=== PATIENT | male | born 1975 | race Caucasian/White ===

== ENCOUNTER 2024-01-07 13:53 | Inpatient (IN) | payer MEDICAID, SELFPAY ==
[2024-01-07 13:54] VITALS: BP 122/95; PULSE 87; RESP 16; TEMP 36.6; O2SAT 98; BMI 23.3
--- NOTE | 2024-01-07 14:03 | EDS_ITS ---
HPI History of Present Illness Chief Complaint: Substance Abuse Informant: patient Narrative Narrative: Patient presents requesting detox from fentanyl. He states his last use was 2 days ago. He typically shoots up. He has not had any recent infections. He also admits to methamphetamine use. He denies alcohol use. [facility] Medical History (Updated 01/07/24 @ 14:[address] Gladys De Leon MD) Substance abuse Bipolar disorder Home Medications ?Medication ?Instructions ?Recorded ?Last Taken ?Type No Known/Unobtainable [No Known 11/25/16 Unknown History Home Medications] Allergy/AdvReac Type Severity Reaction Status Date / Time No Known Allergies Allergy Verified 01/07/24 13:54 Social History Smoking Status: Current every day smoker ROS ROS ED Constitutional Constitutional ED: Denies chills or fever(s) Eyes Eyes: Denies discharge from eye(s) ENT ENT ED: Denies discharge from eye(s), rhinorrhea or sore throat Cardiovascular Cardiovascular: Denies chest pain Respiratory/Chest Respiratory/Chest: Denies cough or dyspnea Gastrointestinal Gastrointestinal: Denies abdominal pain, nausea or vomiting Musculoskeletal Musculoskeletal: Denies back pain or extremity pain Integumentary Denies Abrasions or rash Neurologic Neurologic: Denies headache(s) or weakness Psychiatric Psychiatric: Denies anxiety or depression Allergic/Immunologic Allergic/Immunologic ED: Denies lip swelling or urticaria EXAM Physical Exam Const Vital Signs: 01/07/24 13:54 Temperature 97.8 F Temperature Source Temporal Pulse Rate 87 Respiratory Rate 16 Blood Pressure 122/95 H Blood Pressure Mean 104 Pulse Ox 98 Oxygen Delivery Method Room Air Positive well nourished and well developed General Appearance ED: well developed HEENT Reports moist mucous membranes Eyes EOMs intact bilaterally Chest Wall inspection of chest normal and palpation of chest normal Resp normal respiratory effort and clear to auscultation bilaterally Cardio regular rate and regular rhythm GI soft to palpation Extremity Extremity Narrative: Mild tremor noted to the upper extremities. Neuro oriented x3 and no sensory deficits noted Sensorium / Orientation: alert Psych Mood & Affect: anxious MDM MDM MDM Narrative Medical decision making narrative: Rules of the detox program will be reviewed with the patient. If he agrees to the program, labs will be drawn for medical clearance. I will speak with the hospitalist. Discharge Plan Triage Chief Complaint: Substance Abuse ED Provider: Gladys De Leon Dx/Rx/DC Orders Clinical Impression: Opiate abuse, continuous, Desire for detoxification Prescriptions: No Action No Known Home Medications Primary Care Provider: Care Physician,No Primary Referrals: Care Physician,No Primary [Primary Care Provider] - Print Language: Mongolian Disposition Disposition: Acute Care Hospital [facility]
--- NOTE | 2024-01-07 14:35 | PCM.HP.STD ---
HPI - General General Date of Admission: 01/07/24 Date of Service: 01/07/24 Chief Complaint: Opiate abuse, withdrawal HPI Narrative The patient is a 48 y/o M w/ PMHx: Tobacco use, Hepatitis C, Polysubstance abuse (Fentanyl, Heroin, Crack cocaine, Methamphetamine), Anxiety and Depression/Bipolar disorder who presents to the [facility] ED on 01/07/24 with history of ongoing substance abuse recently primarily fentanyl which she typically uses IV with last usage 2 days prior to presentation in addition to methamphetamine w/ noted acute opiate withdrawal onset starting on day of presentation with dyspepsia, abdominal cramping, body aches, fatigue, restlessness as well as nausea with decreased appetite with minimal oral intake over the last 48 hours. Patient notes being interested in attaining clean status. He notes he is currently living with his mother but is tired of his lifestyle and wants to be clean. He notes that he uses at least a gram of fentanyl daily in addition to other items if he can obtain them. Workup in the ED included T97.8, heart rate 87, BP 122/95, respiratory rate 16, and 8% on room air, pending CBC, CMP, urine drug screen upon request evaluation of patient. [facility] Medical History Polysubstance abuse Tobacco use Heroin abuse Methamphetamine abuse Fentanyl use disorder, severe Crack cocaine use Hepatitis C Anxiety and depression Bipolar disorder Home Medications ?Medication ?Instructions ?Recorded ?Last Taken ?Type gabapentin 400 mg capsule 400 mg PO TID pain 01/07/24 Unknown History Allergy/AdvReac Type Severity Reaction Status Date / Time No Known Allergies Allergy Verified 01/07/24 13:54 Family History (Updated 01/07/24 @ 15:[address] Mónica Ny MD) Mother CVA (cerebral vascular accident) Hypertension Father CVA (cerebral vascular accident) Hypertension Surgical History S/P chest tube placement Social History (Updated 01/07/24 @ 15:[address] Mónica Ny MD) household members: family Smoking Status: Current every day smoker tobacco type: cigarettes Smoking packs per day: 0.5 Smoking cigarettes per day: 10.0 alcohol intake: never substance use type: crack/cocaine, heroin, amphetamines, IV drugs, methamphetamine and other details: Fentanyl. ROS ROS Narrative Admission Review of Systems: CONSTITUTIONAL: No weight loss, fever, chills, + weakness or fatigue. HEENT: + Congestion/rhinorrhea. Eyes: No visual loss, blurred vision, double vision or yellow sclerae. Ears, Nose, Throat: No hearing loss, sneezing, sore throat. SKIN: No rash or itching, lesions, wounds. CARDIOVASCULAR: No chest pain, chest pressure or chest discomfort, palpitations, edema, orthopnea, syncopal events. RESPIRATORY: No shortness of breath, cough or sputum, wheezing, hemoptysis. GASTROINTESTINAL: + Anorexia, nausea, vomiting, diarrhea, abdominal pain. No melena, BRBPR. GENITOURINARY: No dysuria, frequency, urgency or retention. NEUROLOGICAL: No headache, dizziness, syncope, paralysis, ataxia, numbness or tingling in the extremities, focal weakness, change in bowel or bladder control, seizure. MUSCULOSKELETAL: + muscle, back pain, joint pain or stiffness. HEMATOLOGIC: No anemia, bleeding or bruising. LYMPHATICS: No enlarged nodes. No history of splenectomy. PSYCHIATRIC: + History of anxiety and depression/bipolar disorder. ENDOCRINOLOGIC: + reports of sweating, cold or heat intolerance. No polyuria or polydipsia. ALLERGIES: No history of asthma, hives, eczema or rhinitis. Vital Signs Vital Signs Vital Signs: 01/07/24 13:54 Temperature 97.8 F Temperature Source Temporal Pulse Rate 87 Respiratory Rate 16 Blood Pressure 122/95 H Blood Pressure Mean 104 Pulse Ox 98 Oxygen Delivery Method Room Air Weight Weight: 186 lb 11.2 oz Body Mass Index (BMI) 23.3 Physical Exam Narrative Physical Examination: General: Awake, alert, oriented x 3 and cooperative, seated upright in the ED bed, fatigued, mildly restless. Skin: Normal color, normal turgor, no icterus, no cyanosis except notable diffuse very staged ecchymoses and track grace. HEENT: AT/NC, EOMI, PERRLA, dry MM, no carotid bruits or JVD noted. Lungs: Diminished, greater bases, appropriate effort, no rales, ronchi or wheezing. Heart: Regular rate and rhythm; no gallop, rub audible. Abdomen: Soft, mild generalized discomfort but no rebound or guarding, nondistended, hyperactive BS, no appreciated marked HSM. Extremities: No cyanosis, no clubbing, no marked peripheral edema, see skin. Neurological: Patient awake, alert, oriented as noted, cognitive function intact; pupils equally reactive to light and accommodation, cranial nerves grossly normal, moving all 4 extremities, no focal deficits, ill-appearing, notes nauseated, fatigued but restless also, strength moderately globally decreased secondary to acute presentation Psychiatric: Affect appears fatigued, restless, no acute evidence of depressive or anxiety feelings but does have underlying history. Results Lab / Micro Data 01/07/24 15:05 Assessment & Plan Assessment/Plan (1) Opiate withdrawal: PLAN: Plan The patient is a 48 y/o M w/ PMHx: Tobacco use, Hepatitis C, Polysubstance abuse (Fentanyl, Heroin, Crack cocaine, Methamphetamine), Anxiety and Depression/Bipolar disorder who presents to the [facility] ED on 01/07/24 with history of ongoing substance abuse recently primarily fentanyl which he typically uses IV with last usage 2 days prior to presentation in addition to methamphetamine w/ noted acute opiate withdrawal onset. #1. Acute Opiate Withdrawal: Will admit to [facility], routine labs including CBC, CMP, urine for drug screen pending upon evaluation, will initiate and continue on protocol with tapering course of Subutex, as needed tylenol, ibuprofen, bowel regimen, gabapentin, Bentyl, Vistaril, methocarbamol, clonidine, PRN nightly trazodone for insomnia, IV fluids, IV antiemetics. Once patient clinically improved and completion of taper nearing will plan consultation with case management for transition to next level of rehabilitation care. #2. Polysubstance Abuse,History of Hepatitis C, Chronic: Patient currently not candidate for hep C treatment currently as needs to be clean x 6 months, documented attendance NA or AA meetings, counseling and ongoing negative drug screens. Will obtain syphilis, HIV, hepatitis panel to assess for co-infection to be cautious. Encouraged PCP establishment and follow-up. #3. Anxiety and Depression/Bipolar disorder: Per current list not on any chronic psychiatric medication, given substance abuse with strongly benefit from counseling and potential regimen as depression and episodes of alan may be contributing to his substance abuse. #4. Tobacco Abuse: Encouraged cessation, inpatient consultation per RT, NR if desired. #5. DVT prophylaxis: Low risk for type of admission, encourage ambulation. Charges/Coding Visit Charges Inpatient E&M: 22141 Init Hosp L3
[2024-01-07 15:21] VITALS: BP 122/94; PULSE 66; RESP 18; TEMP 36.6; O2SAT 97
[2024-01-07 15:40] VITALS: BMI 23.3
[2024-01-07] MEDS: Methocarbamol 750 MG Tablet PO (16:05)
[2024-01-07] MEDS: hydrOXYzine PAM 25 MG Capsule 50 MG PO (16:05)
[2024-01-07 16:13] VITALS: BP 122/92; PULSE 69; RESP 18; TEMP 36.4; O2SAT 100
[2024-01-07 16:47] LABS: Alcohol, Blood (Medical)-Serum < 3.0 mg/dL
[2024-01-07 17:11] LABS: ALB/GLOB Ratio 0.8 RATIO (0.9-2.4); AST(SGOT) 47 U/L (15-37); Alanine Aminotransfer ALT/SGPT 72 U/L (16-61); Albumin, Serum 3.4 g/dL (3.2-5.0); Alkaline Phosphatase 46 U/L (45-117); Anion Gap 12 (5-15); BUN 13 mg/dL (7-18); BUN/Creat Ratio 12.3 RATIO (10-20); Chloride 107 mmol/L (98-107); Creatinine, Serum 1.06 mg/dL (0.70-1.30); EST Glomerular Filtration Rate 79 mL/min (>60); Est Glom Filt Rate - Afr Amer 96 mL/min (>60); Estimated Creatinine Clearance 102.97 ml/min; Globulin 4.4 g/dL (2.2-4.2); Glucose 112 mg/dL (74-106); Potassium 3.5 mmol/L (3.5-5.1); Protein, Total 7.8 g/dL (6.4-8.2); Sodium Level 137 mmol/L (136-145)
[2024-01-07 19:55] VITALS: BP 102/67; PULSE 68; RESP 16; TEMP 36.6; O2SAT 98
[2024-01-07] MEDS: Gabapentin 400 MG Capsule PO (20:58)
[2024-01-08] VITALS (9 sets, daily range): BP systolic 94–103; BP diastolic 65–72; PULSE 58–71; RESP 14–18; TEMP 36.4–36.7; O2SAT 64–98
[2024-01-08] MEDS: Buprenorphine HCl 2 MG TAB.SUBL SL ×3 (01:21→16:45)
[2024-01-08] MEDS: traZODone 100 MG Tablet PO (01:21)
[2024-01-08] MEDS: cloNIDine HCl 0.1 MG Tablet PO (01:21)
[2024-01-08] MEDS: hydrOXYzine PAM 25 MG Capsule 50 MG PO (01:22)
[2024-01-08] MEDS: Gabapentin 400 MG Capsule PO ×3 (06:51→22:05)
--- NOTE | 2024-01-08 08:15 | PCM.PN.HOSP ---
Reason for Visit Reason for Visit: Diagnoses Opioid dependence with withdrawal (01/07/24) Subjective Subjective Patient is a 48-year-old gentleman with history of polysubstance dependence admitted with acute opioid withdrawal Objective Data Objective Data Vital Signs: Vital Signs Temp Pulse Resp BP Pulse Ox O2 Del Method 97.6 F L 58 L 14 101/71 96 Room Air 01/08/24 06:49 01/08/24 06:49 01/08/24 06:49 01/08/24 06:49 01/08/24 06:49 01/08/24 06:49 Oxygen Delivery Method Room Air Weight: 84.6 kg Body Mass Index (BMI) 23.3 Intake & Output: Intake and Output for Last 24 Hours 01/06/24 01/07/24 01/08/24 23:59 23:59 23:59 Intake Total 500 / 1100 1100 / 1100 Balance 500 / 1100 1100 / 1100 Lab / Micro Data 01/07/24 16:23 Labs: Laboratory Results - last 24 hr 01/07/24 15:05: Sodium Cancelled, Potassium Cancelled, Chloride Cancelled, Carbon Dioxide Cancelled, Anion Gap Cancelled, BUN Cancelled, Creatinine Cancelled, Estim Creat Clear Calc Cancelled, Est GFR (MDRD) Af Amer Cancelled, Est GFR (MDRD) Non-Af Cancelled, BUN/Creatinine Ratio Cancelled, Glucose Cancelled, Calcium Cancelled, Total Bilirubin Cancelled, AST Cancelled, ALT Cancelled, Alkaline Phosphatase Cancelled, Total Protein Cancelled, Albumin Cancelled, Globulin Cancelled, Albumin/Globulin Ratio Cancelled, Ethyl Alcohol Cancelled 01/07/24 16:23: Sodium 137, Potassium 3.5, Chloride 107, Carbon Dioxide 18.0 L, Anion Gap 12, BUN 13, Creatinine 1.06, Estim Creat Clear Calc 102.97, Est GFR (MDRD) Af Amer 96, Est GFR (MDRD) Non-Af 79, BUN/Creatinine Ratio 12.3, Glucose 112 H, Calcium TNP, Total Bilirubin 0.40, AST 47 H, ALT 72 H, Alkaline Phosphatase 46, Total Protein 7.8, Albumin 3.4, Globulin 4.4 H, Albumin/Globulin Ratio 0.8 L, Ethyl Alcohol < 3.0, Syphilis Total Ab Cancelled, Hep Bs Antigen Cancelled, Hep Bs Antibody Cancelled, Hepatitis C Antibody Cancelled, HIV 1&2 Antibody Cancelled Physical Exam Narrative GENERAL: cooperative HEENT: Atraumatic; normocephalic EYES; Anicteric, Normal Conjunctiva NECK; supple, normal thyroid, RESPIRATORY: Diminished to auscultation CARDIOVASCULAR: Regular S1 S2, GI: soft, normoactive bowel sounds, : No Renal angle tenderness; EXTREMITIES: No edema, no clubbing, MUSCULOSKELETAL: no muscle wasting NEURO: Awake; no lateralizing signs. SKIN: No Rash PSYCH; Flat affect Assessment & Plan Assessment/Plan (1) Opiate withdrawal: PLAN: Plan Patient is a 48-year-old gentleman with history of polysubstance dependence admitted with acute opioid withdrawal 1. 1. Acute opioid withdrawal - Patient has been admitted to regular nursing floor, managed buprenorphine taper along with other adjunctive medications for medical stabilization 2. Polysubstance dependence ? Including fentanyl heroin and crack cocaine methamphetamine ? Counseled on cessation 3. Depression with anxiety ? Currently not on any medications plan is for patient to follow-up with primary care physician for subsequent care following discharge 4. Chronic hep C ? Patient to follow-up with PCP for subsequent care 5. Tobacco dependence - Counseled on cessation, offered nicotine patch for tobacco cravings 6. DVT prophylaxis ? Low risk with encouraging ambulation Charges/Coding Visit Charges Inpatient E&M: 16793 Subs Hosp L2
[2024-01-08] MEDS: Ibuprofen 600 MG Tablet PO (08:59)
[2024-01-08 09:31] LABS: Amphetamine Urine VISTA POSITIVE (<1000 ng/mL); Barbiturate Urine VISTA NEGATIVE (< 200 ng/mL); Benzodiazepine Urine VISTA NEGATIVE (< 200 ng/mL); Cocaine Urine VISTA NEGATIVE (< 300 ng/mL); Ecstacy Urine VISTA POSITIVE (< 500 ng/mL); Methadone Urine VISTA NEGATIVE (< 300 ng/mL); PCP Urine VISTA NEGATIVE (< 25 ng/mL); THC Urine VISTA NEGATIVE (< 50 ng/mL); Vista UDS pH Range 5
--- NOTE | 2024-01-08 13:17 | ADDICTION ---
Pt was met with to complete [facility] assessments and discharge plan. Pt appears to meet ASAM criteria for a 4.0LoC and pt presents with extensive risk of relapse. It is recommended that pt follow up with a residential/inpatient tx program. Pt states he is planning to admit to residential tx following d/c from [facility]. Pt states he is a pt of Dr. Rider in [place] and Dr. Rider's office brought him to [facility] for detox yesterday. Pt states Dr. Rider is picking him up from detox and transporting him to residential tx in [place]. Pt reports Dr. Rider instructed him to call Dr. Rider's office to arrange transportation.
[2024-01-09] MEDS: Buprenorphine HCl 2 MG TAB.SUBL SL ×3 (00:44→17:16)
[2024-01-09 03:30] VITALS: BP 101/59; PULSE 57; RESP 16; TEMP 36.6; O2SAT 97
[2024-01-09] MEDS: Gabapentin 400 MG Capsule PO ×3 (06:18→21:00)
[2024-01-09 06:49] VITALS: O2SAT 95
--- NOTE | 2024-01-09 07:23 | PCM.PN.HOSP ---
Reason for Visit Reason for Visit: Diagnoses Opioid dependence with withdrawal (01/07/24) Subjective Subjective Patient seen complains of feeling anxious and having a lot of sweats Objective Data Objective Data Vital Signs: Vital Signs Temp Pulse Resp BP Pulse Ox O2 Del Method 97.9 F 57 L 16 101/59 L 95 Room Air 01/09/24 03:30 01/09/24 03:30 01/09/24 03:30 01/09/24 03:30 01/09/24 06:49 01/09/24 06:49 Oxygen Delivery Method Room Air Weight: 84.6 kg Body Mass Index (BMI) 23.3 Intake & Output: Intake and Output for Last 24 Hours 01/07/24 01/08/24 01/09/24 23:59 23:59 23:59 Intake Total 500 / 1100 1100 / 1940 1200 / 1200 Balance 500 / 1100 1100 / 1940 1200 / 1200 Lab / Micro Data 01/07/24 16:23 Labs: Laboratory Results - last 24 hr 01/08/24 09:00: Urine Opiates Screen NEGATIVE, Urine Methadone Screen NEGATIVE, Ur Barbiturates Screen NEGATIVE, Ur Phencyclidine Scrn NEGATIVE, Ur Amphetamines Screen POSITIVE H, MDMA (Ecstasy) Screen POSITIVE H, U Benzodiazepines Scrn NEGATIVE, Urine Cocaine Screen NEGATIVE, U Cannabinoids Screen NEGATIVE, Ur Drug Screen Comment Physical Exam Narrative GENERAL: cooperative HEENT: Atraumatic; normocephalic EYES; Anicteric, Normal Conjunctiva NECK; supple, normal thyroid, RESPIRATORY: Diminished to auscultation CARDIOVASCULAR: Regular S1 S2, GI: soft, normoactive bowel sounds, : No Renal angle tenderness; EXTREMITIES: No edema, no clubbing, MUSCULOSKELETAL: no muscle wasting NEURO: Awake; no lateralizing signs. SKIN: No Rash PSYCH; Flat affect Assessment & Plan Assessment/Plan (1) Opiate withdrawal: PLAN: Plan Patient is a 48-year-old gentleman with history of polysubstance dependence admitted with acute opioid withdrawal 1. 1. Acute opioid withdrawal - Patient has been admitted to regular nursing floor, managed buprenorphine taper along with other adjunctive medications for medical stabilization ? 01/09/2024; patient still remains symptomatic. Plan is to continue with current regimen 2. Polysubstance dependence ? Including fentanyl heroin and crack cocaine methamphetamine ? Counseled on cessation 3. Depression with anxiety ? Currently not on any medications plan is for patient to follow-up with primary care physician for subsequent care following discharge 4. Chronic hep C ? Patient to follow-up with PCP for subsequent care 5. Tobacco dependence - Counseled on cessation, offered nicotine patch for tobacco cravings 6. DVT prophylaxis ? Low risk with encouraging ambulation Time spent in the patient's overall evaluation,decision-making process, review of diagnostic data, adjustment of management, discussion with other providers, nursing nursing and ancillary staff involved in patient's care documentation, 36 minutes Charges/Coding Visit Charges Inpatient E&M: 46656 Subs Hosp L2
[2024-01-09 09:28] VITALS: BP 96/76; PULSE 72; RESP 18; TEMP 36.6; O2SAT 97
[2024-01-09 14:55] VITALS: BP 100/71; PULSE 62; RESP 16; TEMP 36.6; O2SAT 99
[2024-01-09] MEDS: hydrOXYzine PAM 25 MG Capsule 50 MG PO (17:19)
[2024-01-09 20:59] VITALS: BP 106/74; PULSE 67; RESP 16; TEMP 36.6; O2SAT 96
[2024-01-09] MEDS: traZODone 100 MG Tablet PO (21:00)
[2024-01-10] MEDS: Methocarbamol 750 MG Tablet PO (00:44)
[2024-01-10] MEDS: Buprenorphine HCl 2 MG TAB.SUBL SL ×2 (00:44→11:48)
[2024-01-10 05:06] VITALS: BP 98/72; PULSE 69; RESP 14; TEMP 36.7; O2SAT 96
[2024-01-10] MEDS: Gabapentin 400 MG Capsule PO (05:07)
[2024-01-10 08:00] VITALS: BP 101/66; PULSE 64; RESP 18; TEMP 36.6; O2SAT 98
--- NOTE | 2024-01-10 09:14 | DCINST_ITS ---
Discharge Instructions Diet Discharge Diet: No restrictions Activity Discharge Activity: Return to Normal Activity Dressing / Incision Call your doctor if you observe: Fever of 101 or Higher, Shortness of breath, Dizziness, Fainting spells, Swelling in the ankles, Chest pain and Increased palpitations (irregular heartbeat) Follow Up Care Test Results: Test results from this visit will be discussed in further detail at your follow- up appointment, if applicable. Discharge Plan Admission Admit Date/Time: 01/07/24 14:55 Attending Provider: Norman Gonzalez Primary Care Provider: Care Physician,Padma Primary Consulting Providers: Mónica Ny David Discharge Orders/Prescriptions Prescriptions: Continued gabapentin 400 mg capsule 400 mg PO TID Referrals / Follow Up: Care Physician,Padma Primary [Primary Care Provider] - Disposition Disposition (needs filled in before D/C Order can be placed): Inpatient Rehab Unit/Facility
--- NOTE | 2024-01-10 10:25 | NURSING ---
per Dr instruction, waiting for 12:30 dose of Buprenorphine for d/c
--- NOTE | 2024-01-10 10:35 | PHA.DC.MR.R ---
Pharmacy [place] Med Reconciliation Pharmacy Service has performed discharge medication reconciliation for this patient. The patient's discharge medication list was reviewed for discrepancies and discrepancies were resolved. Medications at Discharge Home Medications gabapentin 400 mg capsule 400 mg PO TID pain 01/07/24
[2024-01-10 11:49] VITALS: BP 133/71; PULSE 80; RESP 18; TEMP 36.7; O2SAT 95
--- NOTE | 2024-01-10 12:03 | NURSING ---
pt given number for warren at [facility] that dropped him off-he was to call when he was dc'd for parts picker to return to [facility] to complete his treatment-msg left w/ warren @ 1100 , warren did not answer phone, left mesg and he was to call back and did not in 1 hours time 180 contacted and they gave 2 more #'s [phone] jose angel answered and was agreeable to parts picker in 45 minutes, then another female came onto phone and states we thought he was going to be there for longer treatment-she understands that pt is dc'd today and jose angel agreed that they wiill be here approximately 12:30 to pick pt up
--- NOTE | 2024-01-10 12:30 | DS.PCM_ITS ---
Providers Date of Admission: 01/07/24 Primary Care Physician: No Primary Care Phys Reason For Visit: OPIATE WITHDRAWAL Diagnosis Discharge Diagnosis (1) Opiate withdrawal: Status: Acute Code(s): F11.23 - Opioid dependence with withdrawal Medications at Discharge Home Medications gabapentin 400 mg capsule 400 mg PO TID pain 01/07/24 Hospital Course Operations None Procedures None Summary of Care Provided Minutes Spent on Discharge: 35 Hospital Course: Per HPI: The patient is a 48 y/o M w/ PMHx: Tobacco use, Hepatitis C, Polysubstance abuse (Fentanyl, Heroin, Crack cocaine, Methamphetamine), Anxiety and Depression/Bipolar disorder who presents to the [facility] ED on 01/07/24 with history of ongoing substance abuse recently primarily fentanyl which she typically uses IV with last usage 2 days prior to presentation in addition to methamphetamine w/ noted acute opiate withdrawal onset starting on day of presentation with dyspepsia, abdominal cramping, body aches, fatigue, restlessness as well as nausea with decreased appetite with minimal oral intake over the last 48 hours. Patient notes being interested in attaining clean status. He notes he is currently living with his mother but is tired of his lifestyle and wants to be clean. He notes that he uses at least a gram of fentanyl daily in addition to other items if he can obtain them. Workup in the ED included T97.8, heart rate 87, BP 122/95, respiratory rate 16, and 8% on room air, pending CBC, CMP, urine drug screen upon request evaluation of patient. Hospital Course: 1. Acute opiate withdrawal with polysubstance abuse/depression/anxiety/chronic hepatitis C/tobacco abuse?48-year-old male presented to the hospital requesting detox from opiates. He completed 3 days of the opiate withdrawal protocol and follows with different drug and alcohol abuse center plan for discharge today was to an inpatient rehab center in [place]. He was going to be picked up by his own drug and rehab group. I discussed with him the plan for discharge today he expressed understanding of the risk benefits of going home and would like to go home today. Discussed with him that he will need to stay clean from opiates in order to receive treatment for hepatitis C. Physical Exam Narrative General: Alert, Oriented x3, Cooperative, No apparent distress HEENT: Atraumatic, PERRLA, EOMI, Normocephalic Oral: Moist Mucosa Neck: Supple, No JVD Lungs: Clear to auscultation, Normal air movement, No rhonchi, No wheeze, No rales Cardiovascular: Regular rate, Regular Rhythm, Normal S1, Normal S2, No murmurs Abdomen: Soft, Non Tender, Non-Distended, No Hepato-splenomegaly Extremities: No edema, Capillary Refill Less than 3 Seconds Skin: No rashes, No breakdown Musculoskeletal: No Tenderness to Palpation of Joints or Extremities Neurological: No focal neurological deficits, Motor Exam 5/5 strength throughout, Sensory exam intact to light touch and pain Psych/Mental Status: Flat Weight / BMI Weight Weight: 186 lb 8.177 oz Body Mass Index (BMI) 23.3 ABG / Lab / Microbiology Data 01/07/24 16:23 D/C Instructions Discharge Diet: No restrictions Call your doctor if you observe: Fever of 101 or Higher, Shortness of breath, Dizziness, Fainting spells, Swelling in the ankles, Chest pain and Increased palpitations (irregular heartbeat) Meaningful Use Info Meaningful Use Meaningful Use Diagnoses (Choose all that apply): None applicable Ischemic Stroke Statin Dosing Therapy Reference: STATIN DOSE THERAPY REFERENCE: * Patients > 75 years receive moderate or high dose statin therapy. * Patients 75 years or YOUNGER should receive HIGH intensity statin dose unless contraindicated. You will be required to document reason for non-treatment if statin daily dose does not meet guidelines. HIGH DOSE STATIN THERAPY DAILY Atorvastatin > than or = to 40 mg Rosuvastatin > than or = to 20 mg Amlodipine + Atorvastatin > than or = to 2.5/40 mg Ezetimibe + Simvastatin 10/80 mg Simvastatin 80mg Discharge Plan Admission Admit Date/Time: 01/07/24 14:55 Attending Provider: Norman Gonzalez Primary Care Provider: Care Physician,No Primary Consulting Providers: Mónica Ny David Discharge Orders/Prescriptions Prescriptions: Continued gabapentin 400 mg capsule 400 mg PO TID Referrals / Follow Up: Care Physician,No Primary [Primary Care Provider] - Disposition Disposition (needs filled in before D/C Order can be placed): Home, Self Care Charges/Coding Visit Charges Inpatient E&M: 25016 Disch Hosp >30min
--- NOTE | 2024-01-10 12:52 | CHAPLAIN ---
Type of Pastoral Visit _x__ Initial Visit ___ Follow-up Visit ___ On-call Visit ___ General Patient Visit ___ Spiritual Assessment ___ Family Conference ___ Bereavement ___ Rapid Response ___ Code Blue ___ Other (describe below) Pastoral Care Referral From _x__ Patient ___ Family ___ Nurse ___ Physician ___ [employer] Handler Supervisor ___ Birthing Nurse ___ Other (describe below) Sacrament/Intervention _x__ Active listening ___ Anointing ___ Pentecostal ___ Bereavement ___ Communion _x__ Anitha exploration ___ _x__ Life review _x__ Prayer ___ Reconciliation ___ Sacrament of Sick _x__ Supportive presence ___ Wedding ___ Other (describe below) Pastoral Comments patient had been seen in a previous admission and this visit was welcomed by patient as a follow up to his life and how he is coping in the community; pt continues to struggle with his addictions although he has had times of sobriety; pt has had legal issues and often is homeless due to addictions and inability to work; pt has a desire to connect with God and spiritual help but also lacks the connections on the outside that assit in that goal; pt is open to support and prayers today prior to his discharge which was soon to occur
== END 2024-01-10 12:20 | disposition home or self-care (01) | DRG 773 ==
LOC: ED 14:16 → MS3 15:01
PROVIDERS: Admitting Provider Family Medicine; Emergency Provider Emergency Medicine; Visit Provider Family Medicine
DX: F11.23 Opioid dependence with withdrawal (principal); F31.9 Bipolar disorder, unspecified; B18.2 Chronic viral hepatitis C; F14.20 Cocaine dependence, uncomplicated; F41.9 Anxiety disorder, unspecified; F17.210 Nicotine dependence, cigarettes, uncomplicated; F15.20 Other stimulant dependence, uncomplicated
CPT/HCPCS: 36415; 80053; 80307; 82077; 99283; 99406